=== PATIENT | male | born 2005 | race Caucasian/White ===

== ENCOUNTER 2023-03-10 13:51 | Emergency (ER) | payer BC ==
[2023-03-10] MEDS ORDERED: IBUPROFEN 600 MG TABLET (FP) PO ONE ×2 (14:06→14:08)
[2023-03-10 14:07] VITALS: BP 108/47; PULSE 80; RESP 16; TEMP 98.1; BMI 25.8
== END 2023-03-10 14:56 | disposition home or self-care (01) ==
LOC: FER 13:51
DX: M25.562 Pain in left knee (principal); R22.42 Localized swelling, mass and lump, left lower limb; W50.0XXA Accidental hit or strike by another person, initial encounter; Y93.64 Activity, baseball
CPT/HCPCS: 73560-TC-LT-FY; 99283-25